=== PATIENT | male | born 1985 | race Caucasian/White ===

== ENCOUNTER 2023-05-25 22:07 | Emergency (ER) | payer SELFPAY ==
[~2023-05-25] VITALS: Ht 172.7 cm; Wt 73.9 kg
[2023-05-25 22:26] VITALS: BP 138/90; PULSE 94; RESP 16; TEMP 97.4; O2SAT 98
[2023-05-25 22:32] VITALS: BP 138/90; PULSE 94; RESP 16; TEMP 97.4
[2023-05-26 01:10] VITALS: O2SAT 98
[2023-05-26] MEDS: NACL 0.9% 1,000 ML IV ONE (02:33)
[2023-05-26] MEDS: ONDANSETRON 4 MG/2 ML VIAL IVP ONE (02:34)
[2023-05-26 02:35] LABS: BASOPHILS % (AUTO) 0.1 % (0.0-2.0); EOSINOPHILS % (AUTO) 0.1 % (0.0-4.0); HEMATOCRIT 43.5 % (36-52); HEMOGLOBIN 15.4 g/dL (12.0-18.0); LYMPHOCYTES # (AUTO) 0.3 K/uL (2.0-11.5); LYMPHOCYTES % (AUTO) 2.6 % (20.5-51.1); MEAN CORPUSCULAR HEMOGLOBIN 32 pg (27-31); MEAN CORPUSCULAR HGB CONC 36 g/dL (33-37); MEAN CORPUSCULAR VOLUME 90.1 fL (80-94); MONOCYTES # (AUTO) 0.3 K/uL (0.8-1.0); MONOCYTES % (AUTO) 2.4 % (1.7-9.3); NEUTROPHILS # (AUTO) 12.8 K/uL (1.8-7.7); NEUTROPHILS % (AUTO) 94.8 % (42.2-75.2); PLATELET COUNT (AUTO) 242 K/uL (140-450); RED BLOOD CELL COUNT(AUTO) 4.82 MIL/uL (4.20-6.10); RED CELL DISTRIBUTION WIDTH 13.1 % (11.6-13.7); WHITE BLOOD COUNT (AUTO) 13.5 K/uL (4.8-10.8)
[2023-05-26 02:46] LABS: ANION GAP 16.2 (8-16); CARBON DIOXIDE 24.9 mmol/L (21-32); POTASSIUM 4.1 mmol/L (3.5-5.1)
[2023-05-26 02:47] LABS: CALCIUM 9.2 mg/dL (8.5-10.1); CREATININE 0.8 mg/dL (0.6-1.3)
[2023-05-26] MEDS ORDERED: VENL37.57 PO (03:27)
== END 2023-05-26 03:30 | disposition home or self-care (01) ==
LOC: MED 22:07
DX: E86.0 Dehydration (principal); Z79.899 Other long term (current) drug therapy
CPT/HCPCS: 36415; 80048; 85025; 96361; 96374; 99283; J2405; J7030